=== PATIENT | female | born 1950 | race Caucasian/White ===

== ENCOUNTER 2019-07-26 15:33 | Emergency (ER) | payer MEDICARE, BC ==
--- OUTSIDE RECORDS SUMMARY | 2019-07-26 15:51 | XMS REPORT | Continuity of Care Document ---
:1950 External Reference #:[id number] Author Name Emily Diaz M.D. (transmitted by agent of provider Aleyda Velazquez) Address [address] [place] [address] Problems Active Problems Provider Date Acute conjunctivitis Emily Diaz M.D. Onset: 01/28/2011 Alex Diaz M.D. Onset: 03/22/2014 Solitary sacroiliitis Emily Diaz M.D. Onset: 03/22/2014 Atrial fibrillation Emily Diaz M.D. 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 Onset: 05/16/2019 Social History Type Date Description Comments Sex Unknown Tobacco Use Start: Unknown Never Smoked Cigarettes ETOH Use Denies alcohol use Tobacco Use Start: Unknown Patient has never smoked Smoking Status Reviewed: 06/22/17 Patient has never smoked Allergies, Adverse Reactions, Alerts Active Allergies Reaction Severity Comments Date enviromental 09/17/2005 Paxil Sleepiness 09/17/2005 NSAIDs 06/11/2016 Dilaudid 06/16/2018 Medications Active Medications SIG Qnty Indications Ordering Provider Date Dilt-XR 1 tab po qd Emily Diaz M.D. 03/15/2017 240mg Caps ER 24HR Xarelto 1 by mouth every 90tabs I48.0 Emily Diaz M.D. 02/14/2015 20mg Tablets day Inga 1 po qd prn 90tabs Emily Diaz M.D. 09/17/2005 180mg Tablets Flonase 1 [place] To Each 6units Emily iDaz M.D. 09/17/2005 50mcg/[place] Nare qd Suspension Probiotic 1 by mouth every Unknown Capsules day as directed Docusate Sodium 1 by mouth at Unknown 100mg bedtime Capsules Dofetilide one capsule Unknown 500mcg twice daily at Capsules 9am and 9 pm Glucosamine every day Unknown Chondroitin Complex Capsules Tumeric One A Day Unknown Medications Administered in Office Medication SIG Qnty Indications Ordering Provider Date PPD Injection Emily Diaz M.D. 07/22/2010 Immunizations CPT Code Status Date Vaccine Reaction Lot # [id number] Given 08/05/2017 Influenza Virus (Afluria) Split Virus 3 Years Of Age And Older Q2035 Given 08/05/2017 Influenza Virus (Afluria) [id number] Split Virus 3 Years Of Age And Older Q2037 Given 07/06/2014 Influenza Vaccine (Fluvirin) 3 Years Of Age Or Older 00005 Given 07/11/2013 Influenza Virus Vaccine Done through [id number] (History Only) [facility] Q2037 Given 09/13/2012 Influenza Vaccine (Fluvirin) 3 Years Of Age Or Older Q2037 Given 09/13/2012 Influenza Vaccine [id number] (Fluvirin) 3 Years Of Age Or Older Q2036 Given 07/16/2011 Flulaval [id number] 46045 Given 07/22/2010 Pneumovax [place]ent [place]j [id number] [address] Given 07/22/2010 Influenza Vaccine [id number] 44364 Given 09/17/2009 Typhoid Inj- Capsular [id number] Polysaccharide Intramuscular Use 48373 Given 09/12/2009 Hepatitis A Vaccine [id number] 21125 Given 06/18/2009 Influenza Vaccine [id number] 18721 Given 07/12/2008 Influenza Vaccine [id number] 27240 Given 07/29/2007 Influenza Vaccine [id number] 39916 Given 06/28/2006 Influenza Vaccine 54917 67112 Given 08/19/2005 Influenza Vaccine [id number] Vital Signs Date Vital Result Comment 06/13/2019 1:32pm BP Systolic 124 mmHg BP Diastolic 62 mmHg Heart Rate 76 /min Height 64 inches 5'4" Weight 202.00 lb BMI (Body Mass Index) 34.7 kg/m2 O2 % BldC Oximetry 96 % 05/08/2019 10:54am BP Systolic 140 mmHg BP Diastolic 70 mmHg Heart Rate 72 /min Height 64 inches 5'4" Weight 193.00 lb BMI (Body Mass Index) 33.1 kg/m2 O2 % BldC Oximetry 92 % Results Test Date Facility Test Result H/L Range Note CBS 03/04/2019 [facility] White Blood 6.1 K/uL Normal 3.1-10.7 1 W/Automated [address] [place] [address] [phone] Red Blood Count 4.48 M/uL Normal 3.90-5.40 Hemoglobin 13.5 gm/dL Normal 11.6-15.8 Hematocrit 39.4 % Normal 36.0-46.1 Mean Cell Volume 87.9 fl Normal 80.9-99.0 Mean Corpuscular HGB 30.1 pg Normal 25.9-32.7 Mean Corpuscular HGB Conc 34.3 g/dL Normal 30.8-34.3 Platelet Count 241 K/uL Normal 155-360 Red Cell Distri Width SD 43.1 fl Normal 36-47 Red Cell Distri Width %CV 13.4 % Normal 11.7-14.4 Mean Platelet Volume 9.8 fl Normal 8.9-12.4 Neut% 57.4 % Normal 40.4-72.8 Lymph % 28.8 % Normal 20.0-42.0 Kane % 9.5 % Normal 4.3-13.2 Eo% 3.3 % Normal 0.0-6.6 Bas% 0.7 % Normal 0.0-1.1 Immature Grans 0.3 % Normal 0.0-5.0 NRBC % 0.0 /100WBC < 10/ 100 WBC Neut# 3.49 K/uL Normal 1.8-7.0 Lymph # 1.75 K/uL Normal 1.0-4.0 Kane # 0.58 K/uL Normal 0.3-0.9 Eos # 0.20 K/uL Normal 0.0-0.5 Baso # 0.04 K/uL Normal 0.0-0.1 Immature Grans Absolute 0.02 K/uL NRBC # 0.00 K/uL Urinalysis With 03/04/2019 [facility] Urine Color STRAW Yellow Microscopic [address] [place] [address] [phone] Urine Clarity CLEAR Clear Urine Glucose - Dipstick NEGATIVE mg/dL Negative Urine Bilirubin - Dipstick NEGATIVE Negative Urine Ketone NEGATIVE mg/dL Negative Urine Specific [place] <= 1.005 Low 1.010-1.030 Urine Blood TRACE Negative Urine PH 6.5 Normal 6.5-7.5 Urine Protein - Dipstick NEGATIVE mg/dL Negative Urine Urobilinogen - Dipstick 0.2 E.U./dL Normal 0.2-1.0 Urine Nitrite - Dipstick NEGATIVE Negative Urine Leuk Esterase TRACE Abnormal Negative Urine RBC 0-2 rbc/hpf 0-2 Urine WBC 0-2 wbc/hpf 0-7 Urine Epithelial Cells FEW /lpf None Seen Urine Bacteria VERY FEW None Seen Urine Amorph Sediment VERY FEW Negative Source: URINE, CLEAN CAT <SEE NOTE> 2 Ua RFX Micro & 03/01/2019 [facility] Urine Color YELLOW Yellow 3 Culture II [address] [place] [address] [phone] Urine Clarity CLEAR Clear Urine Glucose - Dipstick NEGATIVE mg/dL Negative Urine Bilirubin - Dipstick NEGATIVE Negative Urine Ketone TRACE mg/dL High Negative Urine Specific [place] 1.025 Normal 1.010-1.030 Urine Blood NEGATIVE Negative Urine PH 6.0 Low 6.5-7.5 Urine Protein - Dipstick NEGATIVE mg/dL Negative Urine Urobilinogen - Dipstick 0.2 E.U./dL Normal 0.2-1.0 Urine Nitrite - Dipstick NEGATIVE Negative Urine Leuk Esterase NEGATIVE Negative Source: URINE, CLEAN CAT <SEE NOTE> 4 CBS W/Automated 03/01/2019 [facility] White 8.8 K/uL Normal 3.1-10.[address] [place] [address] Count [phone] Red Blood Count 4.62 M/uL Normal 3.90-5.40 Hemoglobin 13.8 gm/dL Normal 11.6-15.8 Hematocrit 41.0 % Normal 36.0-46.1 Mean Cell Volume 88.7 fl Normal 80.9-99.0 Mean Corpuscular HGB 29.9 pg Normal 25.9-32.7 Mean Corpuscular HGB Conc 33.7 g/dL Normal 30.8-34.3 Platelet Count 237 K/uL Normal 155-360 Red Cell Distri Width SD 43.9 fl Normal 36-47 Red Cell Distri Width %CV 13.6 % Normal 11.7-14.4 Mean Platelet Volume 10.2 fl Normal 8.9-12.4 Neut% 85.4 % High 40.4-72.8 Lymph % 6.5 % Low 20.0-42.0 Kane % 7.1 % Normal 4.3-13.2 Eo% 0.3 % Normal 0.0-6.6 Bas% 0.2 % Normal 0.0-1.1 Immature Grans 0.5 % Normal 0.0-5.0 NRBC % 0.0 /100WBC < 10/ 100 WBC Neut# 7.54 K/uL High 1.8-7.0 Lymph # 0.57 K/uL Low 1.0-4.0 Kane # 0.63 K/uL Normal 0.3-0.9 Eos # 0.03 K/uL Normal 0.0-0.5 Baso # 0.02 K/uL Normal 0.0-0.1 Immature Grans Absolute 0.04 K/uL NRBC # 0.00 K/uL Comprehensive 03/01/2019 [facility] Glucose 142 mg/ dL High 74-106 Metabolic Panel [address] [place], [place] [id number] [phone] BUN 14 mg/dL Normal 7-18 Creatinine 0.8 mg/dL Normal 0.6-1.3 Glom Filtration Rate, Estimate >60 mL/min >60 If >60 mL/min >60 5 BUN/Creat 17.5 ratio Sodium 136 mmol/L Normal 136-145 Potassium 3.9 mmol/L Normal 3.5-5.1 Chloride 104 mmol/L Normal 98-107 Carbon Dioxide 24 mmol/L Normal 21-32 Anion Gap 8 mEq/L Normal 8-16 Calcium 9.2 mg/dL Normal 8.5-10.1 Total Protein 7.7 g/dL Normal 6.4-8.2 Albumin 3.6 g/dL Normal 3.4-5.0 Globulin 4.1 g/dL Normal 1.9-4.3 Alb/Glob 0.9 ratio Bilirubin,Total 0.9 mg/dL Normal 0.2-1.0 Sgot/Ast 23 U/L Normal 15-37 SGPT/Alt 37 U/L Normal 12-78 Alkaline Phosphatase 88 U/L Normal 45-117 Basic Metabolic Panel 01/18/2019 [facility] Sodium 138 mmol/L 135-[address] [place] [address] [phone] Potassium 4.2 mmol/L 3.5-5.3 Chloride 103 mmol/L 98-110 Carbon Dioxide 28 mmol/L 20-32 7 Calcium 9.6 mg/dL 8.6-10.4 Glucose 97 mg/dL 65-99 8 Urea Nitrogen (BUN) 24 mg/dL 7-25 Creatinine 0.81 mg/dL 0.50-0.99 9 BUN/Creatinine Ratio 29.6 High 6-22 Egfr Non-Afr. Kitt[place] 75 ML/MIN/1.73M2 > Or = 60 Egfr 86 ML/MIN/1.73M2 > Or = 60 Laboratory test 01/18/2019 [facility] Hemoglobin A1c 6.2 % High 0-5.6 [address] [place] [address] [phone] Xray 12/22/2018 [facility] MRI Of Left W/OUT [address] [place] [address] [phone] 1 [place], MENTALLY CAN'T FOCUS, ADB PAIN COMES GOES 2 URINE, CLEAN CATCH 3 ?INTESTINAL BLOCKAGE 4 URINE, CLEAN CATCH 5 Note: Persistent reduction for 3 months or more in an eGFR <60 mL/min/1.73 m2 defines CKD. Patients with eGFR values >/=60 mL/min/1.73 m2 may also have CKD if evidence of persistent proteinuria is present. The original MDRD equation for estimated GFR is not valid for patients less than 18 years of age. Additional information may be found at www.kdoqi.org. 6 FASTING 7 Reference range for high altitude clients: 18-30 mmol/L 8 GLUCOSE REFERENCE RANGE BASED ON FASTING SPECIMEN. 9 The upper reference limit for Creatinine is approximately 13% higher for people identified as -Kittitian. 10 For someone without known diabetes, a hemoglobin A1C value between 5.7% and 6.4% is consistent with prediabetes and should be confirmed with a follow-up test. For someone with known diabetes, a value <7% indicates that their diabetes is well controlled. A1C targets should be individualized based on duration of diabetes, age, co-morbid conditions and other considerations. This assay result is consistent with an increased risk of diabetes. Currently, no consensus exists regarding use of hemoglobin A1C for diagnosis of diabetes in children. FOR DIAGNOSTIC PURPOSES: A1C VALUE(% OF TOTAL HEMOGLOBIN) INTERPRETATION < 5.7 CONSISTENT WITH THE ABSENCE OF DIABETES 5.7 - 6.4 CONSISTENT WITH INCREASED RISK OF DIABETES > OR = 6.5 CONSISTENT WITH DIABETES FOR MONITORING PURPOSES (ADA GUIDELINNES): A1C VALUE(% OF TOTAL HEMOGLOBIN) INTERPRETATION < 6.5 ACHIEVES STRINGENT GLYCEMIC GOAL < 7.0 ACHIEVES GENERAL GLYCEMIC GOAL(NON- ADULTS) < 8.0 ACHIEVES LESS STRINGENT GLYCEMIC GOAL 11 W/OUT CONTRAST Procedures Date Code Description Status 07/17/2015 [id number] Mammogram Completed 07/18/2014 [id number] Bone Mineral Density Test Completed 07/04/2005 [id number] Colonoscopy Completed Medical Devices Description No Information Available Encounters Type Date Location Provider Dx Diagnosis Office Visit 05/08/2019 Main Office Emily Diaz M.D. 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 disease without esophagitis M25.551 Pain in right hip M25.562 Pain in left knee Office Visit 01/18/2019 10:45a Main Office Emily Diaz L29.9 Pruritus, unspecified M.D. Office Visit 12/22/2018 3:00p Main Office Emily Diaz I48.0 Paroxysmal atrial M.D. fibrillation M25.551 Pain in right hip M25.562 Pain in left knee Assessments Date Code Description Provider 05/16/2019 E88.2 Lipomatosis, not elsewhere classified Emily Diaz M.D. 05/08/2019 D17.24 Benign lipomatous neoplasm of skin and Emily Diaz M.D. subcutaneous tissue of left leg 05/08/2019 K21.9 Gastro-esophageal reflux disease without Emily Diaz M.D. esophagitis 05/08/2019 I48.0 Paroxysmal atrial fibrillation Emily Diaz M.D. 02/01/2019 K21.9 Gastro-esophageal reflux disease without Emily Diaz M.D. esophagitis 02/01/2019 M25.551 Pain in right hip Emily Diaz M.D. 02/01/2019 M25.562 Pain in left knee Emily Diaz M.D. 01/18/2019 L29.9 Pruritus, unspecified Emily Diaz M.D. 12/22/2018 I48.0 Paroxysmal atrial fibrillation Emily Diaz M.D. 12/22/2018 M25.551 Pain in right hip Emily Diaz M.D. 12/22/2018 M25.562 Pain in left knee Emily Diaz M.D. 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
--- OUTSIDE RECORDS SUMMARY | 2019-07-26 15:51 | XMS REPORT | Continuity of Care Document ---
:1950 External Reference #:[id number] Author Name Frances Kam Problems Active Problems Provider Date Acute conjunctivitis Emily Diaz M.D. Onset: 01/28/2011 Sciatica Emily Diaz M.D. Onset: 03/22/2014 Solitary sacroiliitis Emily [...] Medications SIG Qnty Indications Ordering Provider Date Xyzal Allergy 24HR 1 by mouth every 30tabs J30.1 Emily Diaz M.D. 2018 5mg day Tablets Dilt-XR 1 tab po qd Emily Diaz M.D. 03/15/2017 240mg Caps ER 24HR Xarelto 1 by mouth every 90tabs I48.0 Emily Diaz M.D. 02/14/2015 20mg Tablets day Inga 1 po qd prn 90tabs Emily Diaz M.D. 09/17/2005 180mg Tablets Flonase 1 [place] To Each 6units Emily Diaz M.D. 09/17/2005 50mcg/[place] Nare qd Suspension Probiotic 1 by mouth every Unknown Capsules day as directed Docusate Sodium 1 by mouth at Unknown 100mg bedtime Capsules Dofetilide one capsule Unknown 500mcg twice daily at Capsules 9am and 9 pm Glucosamine every day Unknown Chondroitin Complex Capsules Tumeric One A Day Unknown Medications Administered in Office Medication SIG Qnty Indications Ordering Provider Date PPD Injection Emiyl Diaz M.D. 07/22/2010 Immunizations CPT Code Status Date Vaccine Reaction Lot # [id number] Given 08/05/2017 Influenza Virus (Afluria) Split Virus 3 Years Of Age And Older Q2035 Given 08/05/2017 Influenza Virus (Afluria) [id number] Split Virus 3 Years Of Age And Older Q2037 Given 07/06/2014 Influenza Vaccine (Fluvirin) 3 Years Of Age Or Older [id number] Given 07/11/2013 Influenza Virus Vaccine Done through [id number] (History Only) [facility] Q2037 Given 09/13/2012 Influenza Vaccine (Fluvirin) 3 Years Of Age Or Older Q2037 Given 09/13/2012 Influenza Vaccine [id number] (Fluvirin) 3 Years Of Age Or Older Q2036 Given 07/16/2011 Flulaval [id number] 11848 Given 07/22/2010 Pneumovax [place] [id number] [address] Given 07/22/2010 Influenza Vaccine [id number] 71814 Given 09/17/2009 Typhoid Inj- Capsular [id number] Polysaccharide Intramuscular Use 23144 Given 09/12/2009 Hepatitis A Vaccine [id number] 95654 Given 06/18/2009 Influenza Vaccine [id number] 96495 Given 07/12/2008 Influenza Vaccine [id number] 20271 Given 07/29/2007 Influenza Vaccine [id number] 57910 Given 06/28/2006 Influenza Vaccine [id number] 28296 Given 08/19/2005 Influenza Vaccine [id number] Vital Signs Date Vital Result Comment 06/13/2019 [...] 1 W/Automated [address] [place] [address] [phone] Red Blood Count 4.48 M/uL Normal 3.90-5.40 [...] 40.4-72.8 Lymph % 28.8 % Normal 20.0-42.0 [place] % 9.5 % Normal 4.3-13.2 Eo% 3.3 % Normal 0.0-6.6 Bas% 0.7 % Normal 0.0-1.1 Immature Grans 0.3 % Normal 0.0-5.0 NRBC % 0.0 /100WBC < 10/ 100 WBC Neut# 3.49 K/uL Normal 1.8-7.0 Lymph # 1.75 K/uL Normal 1.0-4.0 [place] # 0.58 K/uL Normal 0.3-0.9 Eos # 0.20 K/uL Normal 0.0-0.5 Baso # 0.04 K/uL Normal 0.0-0.1 Immature Grans Absolute 0.02 K/uL NRBC # 0.00 K/uL Urinalysis With 03/04/2019 [facility] Urine Color STRAW Yellow Microscopic [address] [place] [address] [phone] Urine Clarity CLEAR Clear Urine Glucose - Dipstick NEGATIVE mg/dL Negative Urine Bilirubin - Dipstick NEGATIVE Negative Urine Ketone NEGATIVE mg/dL Negative Urine Specific [place] <= 1.005 Low 1.010-1.030 Urine Blood TRACE [...] Yellow 3 Culture II [address] [place] [address] [phone] Urine Clarity CLEAR Clear Urine Glucose - Dipstick NEGATIVE mg/dL Negative Urine Bilirubin - Dipstick NEGATIVE Negative Urine Ketone TRACE mg/dL High Negative Urine Specific [place] 1.025 Normal 1.010-1.030 Urine Blood NEGATIVE Negative Urine PH 6.0 Low 6.5-7.5 Urine Protein - Dipstick NEGATIVE mg/dL Negative Urine Urobilinogen - Dipstick 0.2 E.U./dL Normal 0.2-1.0 Urine Nitrite - Dipstick NEGATIVE Negative Urine Leuk Esterase NEGATIVE Negative Source: URINE, CLEAN CAT <SEE NOTE> 4 CBS W/Automated 03/01/2019 [facility] White 8.8 K/uL Normal 3.1-10.[address] [place] [address] Count [phone] Red Blood Count 4.62 M/uL Normal 3.90-5.40 [...] 40.4-72.8 Lymph % 6.5 % Low 20.0-42.0 [place] % 7.1 % Normal 4.3-13.2 Eo% 0.3 % Normal 0.0-6.6 Bas% 0.2 % Normal 0.0-1.1 Immature Grans 0.5 % Normal 0.0-5.0 NRBC % 0.0 /100WBC < 10/ 100 WBC Neut# 7.54 K/uL High 1.8-7.0 Lymph # 0.57 K/uL Low 1.0-4.0 [place] # 0.63 K/uL Normal 0.3-0.9 Eos # 0.03 K/uL Normal 0.0-0.5 Baso # 0.02 K/uL Normal 0.0-0.1 Immature Grans Absolute 0.04 K/uL NRBC # 0.00 K/uL Comprehensive 03/01/2019 [facility] Glucose 142 mg/ dL High 74-106 Metabolic Panel [address] [place] [place], [place] [id number] [phone] BUN 14 mg/dL Normal 7-18 Creatinine 0.8 [...] Lab Sodium 138 mmol/L 135-[address] [place] [address] [phone] Potassium 4.2 mmol/L 3.5-5.3 Chloride 103 mmol/L 98-110 Carbon Dioxide 28 mmol/L 20-32 7 Calcium 9.6 mg/dL 8.6-10.4 Glucose 97 mg/dL 65-99 8 Urea Nitrogen (BUN) 24 mg/dL 7-25 Creatinine 0.81 mg/dL 0.50-0.99 9 BUN/Creatinine Ratio 29.6 High 6-22 Egfr Non-Afr. Mongolian 75 ML/MIN/1.73M2 > Or = 60 Egfr 86 ML/MIN/1.73M2 > Or = 60 Laboratory test 01/18/2019 [facility] Hemoglobin A1c 6.2 % High 0-5.6 [address] [place] [address] [phone] Xray 12/22/2018 [facility] MRI Of Left W/OUT [address] [place] [address] [phone] 1 [place], MENTALLY CAN'T FOCUS, ADB PAIN [...] approximately 13% higher for people identified as -Mongolian. 10 For someone without known diabetes, a [...] CONTRAST Procedures Date Code Description Status 07/17/2015 [id number] Mammogram Completed 07/18/2014 [id number] Bone Mineral Density Test Completed 07/04/2005 [id number] Colonoscopy Completed Medical Devices Description No Information Available Encounters Type Date Location Provider Dx Diagnosis Office Visit 06/13/2019 Main Office Emily Diaz M.D. I48.0 Paroxysmal atrial 1:30p fibrillation G47.33 Obstructive sleep apnea (adult) (pediatric) J30.1 Allergic rhinitis due to pollen Office Visit 05/08/2019 10:30a Main Office Emily Diaz, D17.24 Benign lipomatous M.D. neoplasm of skin, subcu of left leg [...] left knee Assessments Date Code Description Provider 06/13/2019 I48.0 Paroxysmal atrial fibrillation Emily Diaz M.D. 06/13/2019 G47.33 Obstructive sleep apnea (adult) (pediatric) Emily Diaz M.D. 06/13/2019 J30.1 Allergic rhinitis due to pollen Emily Diaz M.D. 05/16/2019 E88.2 Lipomatosis, not elsewhere classified Emily [...] knee Emily Diaz M.D. Plan of Treatment Future Appointment(s):09/11/2019 11:00 am - Emily Diaz M.D. 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
--- OUTSIDE RECORDS SUMMARY | 2019-07-26 15:51 | XMS REPORT | Continuity of Care Document ---
:1950 External Reference #:[id number] Author Name Emily Diaz M.D. Address [address] [place] [address] Problems Active Problems Provider Date Acute conjunctivitis [...] Diaz M.D. 09/17/2005 180mg Tablets Flonase 1 [place] To Each 6units Emily Diaz M.D. 09/17/2005 50mcg/[place] Nare qd Suspension Probiotic 1 by mouth [...] Older Q2035 Given 08/05/2017 Influenza Virus (Afluria) [id number] Split Virus 3 Years Of Age And Older Q2037 Given 07/06/2014 Influenza Vaccine (Fluvirin) 3 Years Of Age Or Older 15195 Given 07/11/2013 Influenza Virus Vaccine Done through [id number] (History Only) [facility] Q2037 Given 09/13/2012 Influenza Vaccine (Fluvirin) 3 Years Of Age Or Older Q2037 Given 09/13/2012 Influenza Vaccine [id number] (Fluvirin) 3 Years Of Age Or Older Q2036 Given 07/16/2011 Flulaval [id number] 08412 Given 07/22/2010 [place]neumov[place] [id number] [address] Given 07/22/2010 Influenza Vaccine [id number] 67726 Given 09/17/2009 Typhoid Inj- Capsular [id number] Polysaccharide Intramuscular Use 43317 Given 09/12/2009 Hepatitis A Vaccine [id number] 97619 Given 06/18/2009 Influenza Vaccine [id number] 19992 Given 07/12/2008 Influenza Vaccine [id number] 94230 Given 07/29/2007 Influenza Vaccine [id number] 63563 Given 06/28/2006 Influenza Vaccine [id number] 83182 Given 08/19/2005 Influenza Vaccine [id number] Vital Signs Date Vital Result Comment 06/13/2019 [...] Test Result H/L Range Note CBS 03/04/2019 [facility] White Blood 6.1 K/uL Normal 3.1-10.7 1 W/Automated [address] [place] [address] [phone] Red Blood Count 4.48 M/uL Normal 3.90-5.40 [...] 40.4-72.8 Lymph % 28.8 % Normal 20.0-42.0 Marshall % 9.5 % Normal 4.3-13.2 Eo% 3.3 % Normal 0.0-6.6 Bas% 0.7 % Normal 0.0-1.1 Immature Grans 0.3 % Normal 0.0-5.0 NRBC % 0.0 /100WBC < 10/ 100 WBC Neut# 3.49 K/uL Normal 1.8-7.0 Lymph # 1.75 K/uL Normal 1.0-4.0 Marshall # 0.58 K/uL Normal 0.3-0.9 Eos # 0.20 K/uL Normal 0.0-0.5 Baso # 0.04 K/uL Normal 0.0-0.1 Immature Grans Absolute 0.02 K/uL NRBC # 0.00 K/uL Urinalysis With 03/04/2019 [facility] Urine Color STRAW Yellow Microscopic [address] [place] [address] [phone] Urine Clarity CLEAR Clear Urine Glucose - [place] NEGATIVE mg/dL Negative Urine Bilirubin - [place] NEGATIVE Negative Urine Ketone NEGATIVE mg/dL Negative Urine Specific [place] <= 1.005 Low 1.010-1.030 Urine Blood TRACE [...] NOTE> 2 Ua RFX Micro & 03/01/2019 [facility] Urine Color YELLOW Yellow 3 Culture II [address] [place] [address] [phone] Urine Clarity CLEAR Clear Urine Glucose - [place] NEGATIVE mg/dL Negative Urine Bilirubin - [place] NEGATIVE Negative Urine Ketone TRACE mg/dL High Negative Urine Specific [place] 1.025 Normal 1.010-1.030 Urine Blood NEGATIVE Negative Urine PH 6.0 Low 6.5-7.5 Urine Protein - [place] NEGATIVE mg/dL Negative Urine Urobilinogen - [place] 0.2 E.U./dL Normal 0.2-1.0 Urine Nitrite - [place] NEGATIVE Negative Urine Leuk Esterase NEGATIVE Negative Source: URINE, CLEAN CAT <SEE NOTE> 4 CBS W/Automated 03/01/2019 [facility] White 8.8 K/uL Normal 3.1-10.[address] [place] [address] Count [phone] Red Blood Count 4.62 M/uL Normal 3.90-5.40 [...] 40.4-72.8 Lymph % 6.5 % Low 20.0-42.0 Marshall % 7.1 % Normal 4.3-13.2 Eo% 0.3 % Normal 0.0-6.6 Bas% 0.2 % Normal 0.0-1.1 Immature Grans 0.5 % Normal 0.0-5.0 NRBC % 0.0 /100WBC < 10/ 100 WBC Neut# 7.54 K/uL High 1.8-7.0 Lymph # 0.57 K/uL Low 1.0-4.0 Marshall # 0.63 K/uL Normal 0.3-0.9 Eos # 0.03 K/uL Normal 0.0-0.5 Baso # 0.02 K/uL Normal 0.0-0.1 Immature Grans Absolute 0.04 K/uL NRBC # 0.00 K/uL Comprehensive 03/01/2019 [facility] Glucose 142 mg/ dL High 74-106 Metabolic Panel [address] [place], [place] [id number] [phone] BUN 14 mg/dL Normal 7-18 Creatinine 0.8 [...] Lab Sodium 138 mmol/L 135-[address] [place] [address] [phone] Potassium 4.2 mmol/L 3.5-5.3 Chloride 103 mmol/L 98-110 Carbon Dioxide 28 mmol/L 20-32 7 Calcium 9.6 mg/dL 8.6-10.4 Glucose 97 mg/dL 65-99 8 Urea Nitrogen (BUN) 24 mg/dL 7-25 Creatinine 0.81 mg/dL 0.50-0.99 9 BUN/Creatinine Ratio 29.6 High 6-22 Egfr Non-Afr. [place] 75 ML/MIN/1.73M2 > Or = 60 Egfr 86 ML/MIN/1.73M2 > Or = 60 Laboratory test 01/18/2019 [facility] Hemoglobin A1c 6.2 % High 0-5.[address] [place] [address] [phone] Xray 12/22/2018 [facility] MRI Of Left W/OUT 11 [address] [place] [address] [phone] 1 SALGUERO, MENTALLY CAN'T FOCUS, ADB PAIN [...] approximately 13% higher for people identified as -Kosovan. 10 For someone without known diabetes, a [...] CONTRAST Procedures Date Code Description Status 07/17/2015 [id number] Mammogram Completed 07/18/2014 [id number] Bone Mineral Density Test Completed 07/04/2005 [id number] Colonoscopy Completed Medical Devices Description No Information [...] am - Emily Diaz M.D. 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
[2019-07-26 16:52] VITALS: BP 125/65
--- NOTE | 2019-07-26 17:25 | ED ---
Abdominal Pain/Female - HPI Summary HPI Summary: 69 yr old female with the complaint of left upper quadrant abdominal pain. Onset three days ago, and worse with eating this morning. No NVD. No urinary symptoms. Her pain in the left upper abdomen goes into left flank. She denies dizziness, light headedness. She denies chest pain, SOB. - History of Current Complaint Chief Complaint: UCGI Stated Complaint: PAIN IN LEFT SIDE ABD Time Seen by Provider: 07/26/19 16:49 Pain Intensity: 5 Allergies/Adverse Reactions: Allergies Allergy/AdvReac Type Severity Reaction Status Date / Time hydromorphone [From Dilaudid] Allergy Vomiting Verified 07/26/19 16:32 Home Medications: Home Medications Diltiazem CD CAP* [Cardizem CD CAP*] 240 mg PO DAILY 07/26/19 [History Confirmed 07/26/19] Docusate Sodium [Stool Softener] 1 tab QPM 07/26/19 [History Confirmed 07/26/19] Dofetilide CAP* [Tikosyn CAP*] 1 cap BID 07/26/19 [History Confirmed 07/26/19] L.acidoph,Paracasei, B.lactis [Probiotic] 1 tab QAM 07/26/19 [History Confirmed 07/26/19] Rivaroxaban TAB(*) [Xarelto 20 mg] 20 mg PO QPM 07/26/19 [History Confirmed ] PMH/Surg Hx/FS Hx/Imm Hx Endocrine/Hematology History: Reports: Hx Diabetes - pre-diabetic; not on meds GI History: Reports: Other GI Disorders - REPEATED SB OBSTRUCTIONS - Cancer History Cancer Type, Location and Year: LEFT BREAST CA-2000- lumpectomy, radiation and tamoxifen Hx Chemotherapy: No Hx Radiation Therapy: Yes - Surgical History Surgery Procedure, Year, and Place: LYMPHECTOMY. LEFT LUMPECTOMY. APPY. ADHESION SX. HYSTERECTOMY. LEFT KNEE (piece of bone removed) Infectious Disease History: Yes Infectious Disease History: Reports: Hx Shingles Denies: Traveled Outside the [place] in Last 30 Days - Family History Known Family History: Positive: None - Social History Occupation: Retired Alcohol Use: None Substance Use Type: Reports: None Smoking Status (MU): Never Smoked Tobacco Review of Systems Constitutional: Negative Positive: Abdominal Pain. Negative: Vomiting, Diarrhea, Nausea Genitourinary: Negative All Other Systems Reviewed And Are Negative: Yes Physical Exam Triage Information Reviewed: Yes Vital Signs On Initial Exam: Initial Vitals Temp Pulse Resp BP Pulse Ox 98.3 F 70 16 125/65 98 07/26/19 16:37 07/26/19 16:37 07/26/19 16:37 07/26/19 16:37 07/26/19 16:37 Vital Signs Reviewed: Yes Appearance: Positive: Well-Appearing, No Pain Distress Skin: Positive: Warm, Skin Color Reflects Adequate Perfusion Head/Face: Positive: Normal Head/Face Inspection Eyes: Positive: EOMI ENT: Positive: Normal ENT inspection Neck: Positive: Nontender Respiratory/Lung Sounds: Positive: Clear to Auscultation, Breath Sounds Present Cardiovascular: Positive: RRR. Negative: Murmur Abdomen Description: Positive: Nontender, Soft. Negative: CVA Tenderness (R), CVA Tenderness (L), Distended Musculoskeletal: Positive: Strength/ROM Intact Neurological: Positive: Sensory/Motor Intact, Alert, Oriented to Person Place, Time, CN Intact II-III, Normal Gait, Speech Normal Psychiatric: Positive: Normal - Shanda Coma Scale Best Eye Response: 4 - Spontaneous Best Motor Response: 6 - Obeys Commands Best Verbal Response: 5 - Oriented Coma Scale Total: 15 Diagnostics - Vital Signs Vital Signs Temp Pulse Resp BP Pulse Ox 07/26/19 16:37 98.3 F 70 16 125/65 98 - Laboratory Lab Results: Lab Results 07/26/19 Range/Units 17:17 POC Urine Color Yellow POC Urine Clarity Clear POC Urine pH 6.0 (5-9) POC Ur Specif [place] 1.010 (1.010-1.030) POC Urine Protein Negative (Negative) POC Ur Glucose (UA) Negative (Negative) POC Urine Ketones Negative (Negative) POC Urine Blood Trace-intact A (Negative) POC Urine Nitrite Negative (Negative) POC Urine Bilirubin Negative (Negative) POC Urine Urobilinogen 0.2 (Negative) POC U Leukocyte Esteras Negative (Negative) Lab Statement: Any lab studies that have been ordered have been reviewed, and results considered in the medical decision making process. Abdominal Pain Fem Course/Dx - Course Course Of Treatment: 69 yr old female with left upper quadrant abdominal pain worse with eating and present for three days. She will go to the ER for further work up and evaluation. - Diagnoses Provider Diagnoses: Abdominal pain, left upper quadrant Discharge ED - Sign-Out/Discharge Documenting (check all that apply): Patient Departure All imaging exams completed and their final reports reviewed: No Studies - Discharge Plan Condition: Good Disposition: HOME-RECOMMEND TO ED Patient Education Materials: Acute Abdominal Pain (ED) Referrals: Emily Diaz MD [Primary Care Provider] - Additional Instructions: You need to go to the ER now for further evaluation. Do not delay. GO now after leaving here. - Billing Disposition and Condition Condition: GOOD Disposition: Home-Recommend to ED
== END 2019-07-26 17:31 | disposition home health service (06) ==
LOC: UCCORT 15:33
DX: R10.12 Left upper quadrant pain (principal); R73.03 Prediabetes; Z85.3 Personal history of malignant neoplasm of breast; Z79.01 Long term (current) use of anticoagulants
CPT/HCPCS: 81003; 99212; G0463